=== PATIENT | female | born 1985 | race Caucasian/White ===

== ENCOUNTER 2019-09-29 06:46 | Inpatient (IN) | payer BC ==
[2019-09-29] MEDS ORDERED: Nalbuphine* 10 MG/ML 1 ML VIAL IV ONE (07:40)
[2019-09-29] MEDS ORDERED: Promethazine INJ(RESTRICTED)* 25 MG/ML 1 ML VIAL IV ONE (07:40)
[2019-09-29] MEDS ORDERED: Buffered Lidocaine 1% SYRIN* 1 ML/SYRINGE INTRADERM ONE (07:40)
[2019-09-29] MEDS ORDERED: Lactated Ringers 1000 ML Bag* 1,000 ML IV ONE (07:40)
--- NOTE | 2019-09-29 07:48 | HP ---
General Information - Reason for Visit Leaking of fluid, Contractions - General Information Maternal Age: 31 Grav: 2 Para: 0 SAB: 1 IEA: 0 Estimated Due Date: 01/02/17 Determined By: Early Ultrasound Maternal Blood Type and Rh: O Positive - Results this Serology/RPR Result: Non-Reactive Rubella Result: Non-Immune HBsAg Result: Negative HIV Result: Negative GBS Culture Result: Negative Past Medical History Delivery History: Hx Uncomplicated Vaginal Delivery Pertinent Past Medical History: Non-Contributory Pertinent Past Surgical History: See Records Past Surgical History Comment: Tonsillectomy [place] Tooth Extraction Right ACL repair - 2014 Pertinent Family History: See Records Family History Comment: Father: hypertension Mother: hypertension, heart disease (has stent) - Antepartal Records Antepartal Records: Reviewed, Uncomplicated Review of Systems Constitutional: Uncomfortable CV Complaint: No Respiratory: Shortness of Breath: No Gastrointestinal: No Nausea/Vomiting, Normal Bowel Movement Genitourinary: Leaking Fluid, No Dysuria Musculoskeletal: No Epigastric Pain, Back Pain, Contractions Neurological: No Headache, No Visual Changes Movement: Normal Exam Allergies/Adverse Reactions: Allergies MS Acetaminophen [From Lortab] Allergy (Verified 09/17/19 09:07) Itching MS Hydrocodone [From Lortab] Allergy (Verified 09/17/19 09:07) Itching B/P: 133/80, P: 76, T: 97.6, R: 28 Lab Values - Entire Visit: Laboratory Tests 09/29/19 07:17 Vag Amniotic Fld Detect Positive - Measurements Height: 5 ft 10 in Weight: 222 lb Body Mass Index (BMI): 31.8 Pre- Weight: 182 lb - Exam Breast: Breast Exam Deferred CVA: No CVA Tenderness Extremities: No Edema Heart: Normal Rhythm/Heart Sounds HEENT: No Significant Findings Lungs: Clear Bilaterally Reflexes: DTR 2+ Thyroid: No Thyromegaly - Abdominal Exam Abdomen Exam: Non-Tender, Fundal Height Consistent with Dates - Ultrasound/Biophysical Profile Ultrasound Status: Not Done Targeted Exam Findings See L&D Outpatient Visit Provider Note for Findings: N/A Estimated Weight: 8 lb by margaret's Cervical Exam: 2cm Effacement: 100% Station: -2 Presenting Part: Vertex Membrane Status: SROM Amniotic Fluid Evaluation: Positive ROM Plus Bleeding/Discharge: Bloody Show EFM Findings - External Monitor Findings Baseline Heart Rate: 135 External Monitor Findings: Accelerations Present, No Pattern of Variable or Late Decelerations, Variability Moderate, Baseline Stable Contractions: Regular, Mild, Moderate, 45-90 Seconds Contraction Frequency: 5-10 min Assessment/Plan - Assessment A: IUP at 39 2/7 weeks Category I FHR, no evidence of metabolic acidemia GBS negative SROM Early labor P: Admit to inpatient Therapeutic rest as desired, undecided on epidural Will place IV lock and draw labs Reassess PRN Anticipate SVB - Plan Plan: Admit - Anticipate Vaginal Delivery - Date/Time of Admission Date of Admission: 09/29/19 Time of Admission: 07:40
[2019-09-29] MEDS ORDERED: Lactated Ringers 1000 ML Bag* 1,000 ML IV SCH ×2 (08:00→11:00)
[2019-09-29 08:25] LABS: Urine Benzodiazepine Screen None Detected (None Detect); Urine Opiates Screen None Detected (None Detect)
[2019-09-29 08:44] LABS: ABS Eosinophils 0.1 10^3/ul (0-0.6); ABS Lymphocytes 2.3 10^3/ul (1.0-4.8); ABS Monocytes 0.8 10^3/ul (0-0.8); ABS Neutrophils 6.2 10^3/ul (1.5-7.7); Eosinophil % 0.6 %; Hematocrit 38 % (35-47); Hemoglobin 13.1 g/dL (12.0-16.0); Lymphocyte % 24.3 %; Mean Corpuscular HGB Conc 34 g/dL (31-36); Mean Corpuscular Hemoglobin 32 pg (27-31); Mean Corpuscular Volume 92 fL (80-97); Mean Platelet Volume 8.6 fL (7.4-10.4); Nucleated Red Blood Cells % 0.1; Platelet Count 213 10^3/uL (150-450); Red Blood Count 4.15 10^6 /uL (3.70-4.87); Red Cell Distribution Width 13 % (10-15); White Blood Count 9.4 10^3/uL (3.5-10.8)
[2019-09-29] MEDS ORDERED: Oxytocin in LR* 20 UNITS/1,000 ML BAG IVPB ONE (09:58)
[2019-09-29] MEDS ORDERED: Acetaminophen TAB* 325 MG PO PRN (10:13)
[2019-09-29] MEDS ORDERED: Witch Hazel PAD* JAR TOPICAL PRN (10:13)
[2019-09-29] MEDS ORDERED: Glycerin ADULT SUPP PR PRN (10:13)
[2019-09-29] MEDS ORDERED: Dibucaine 1% 28.35 GM TUBE PR PRN (10:13)
--- NOTE | 2019-09-29 10:20 | PROCNOTE ---
[facility] OB: Delivery Note - Delivery A Date of : 09/29/19 Time of : 09:52 [place] Sex: Male Score 1 Minute: 9 Score 5 Minutes: 9 Gestational Age in Weeks and Days at Delivery: 182 Weeks and 6 Days Delivery Method: Spontaneous Vaginal Labor: Spontaneous Did Patient attempt ?: N/A, No Previous Amniotic Fluid: Clear Estimated Blood Loss: 300 Anesthesia/Analgesia: None Delivered By: Lizy Chao - Nursery Level of Nursery: Regular/Bedside - Perineum Perineal Injury: Abrasion Only - Not Repaired Perineal Repair: None - Events Delivery Events of Note: Pitocin Only After Delivery, Precipitous Delivery - Additional Delivery Notes Additional Delivery Notes: now 39 2/7 weeks experienced SROM to clear fluid at 2300 on 09/28/19, with onset of regular contractions at 0800 on 09/29/19. Began pushing spontaneously at 0945 in hands-knees position, slow controlled delivery of head NEELIMA at 0952, shoulders followed easily with next push. Somersaulted through loose nuchal x 1. Mother assisted into supine position, vigorous male delivered to maternal abdomen. Spontaneous cry, HR > 110, Apgars 9 and 9. Intact hiro placenta followed at 1001, membranes intact and 3VC with marginal insertion noted. Pitocin initiated at 200 cc/hr, fundus firm with massage. Perineum and vagina inspected, perineum intact with small abrasion noted at the introitus. No repair necessary. EBL = 300 cc. Mother and infant stable at time of note, feeding plan is breast.
[2019-09-29] MEDS ORDERED: Oxytocin in LR* 20 UNITS/1,000 ML BAG IVPB SCH (11:00)
[2019-09-29] MEDS: Ibuprofen TAB* 600 MG PO SCH ×2 (11:00→16:58)
[2019-09-29] MEDS ORDERED: OXYTOCIN* 10 UNITS/ML 1 ML VIAL IM ONE (12:10)
[2019-09-29] MEDS ORDERED: Simethicone TAB* 80 MG TAB.CHEW PO SCH (12:30)
[2019-09-29] MEDS: Docusate CAP* 100 MG PO SCH ×2 (16:58→20:17)
--- NOTE | 2019-09-29 18:00 | PTEDU ---
Patient Name: HEMANT GARCÍA HEMANT GARCÍA selected video: Follow Me Mum: The Still to Successful to view on 09/29/20 at 5:58:57 PM from [id number]
[2019-09-30] MEDS: Ibuprofen TAB* 600 MG PO SCH ×2 (00:19→08:13)
[2019-09-30 06:15] LABS: ABS Basophils 0.1 10^3/ul (0-0.2); ABS Eosinophils 0.1 10^3/ul (0-0.6); ABS Lymphocytes 2.7 10^3/ul (1.0-4.8); ABS Monocytes 0.9 10^3/ul (0-0.8); ABS Neutrophils 7.1 10^3/ul (1.5-7.7); Eosinophil % 0.6 %; Hematocrit 34 % (35-47); Hemoglobin 11.8 g/dL (12.0-16.0); Lymphocyte % 25.2 %; Mean Corpuscular HGB Conc 34 g/dL (31-36); Mean Corpuscular Hemoglobin 31 pg (27-31); Mean Corpuscular Volume 91 fL (80-97); Mean Platelet Volume 8.1 fL (7.4-10.4); Nucleated Red Blood Cells % 0.1; Platelet Count 207 10^3/uL (150-450); Red Blood Count 3.76 10^6 /uL (3.70-4.87); Red Cell Distribution Width 13 % (10-15); White Blood Count 10.7 10^3/uL (3.5-10.8)
[2019-09-30 08:04] VITALS: BP 129/74
[2019-09-30] MEDS: Docusate CAP* 100 MG PO SCH (08:13)
[2019-09-30] MEDS ORDERED: Ferrous Gluconate TAB* 324 MG TAB PO SCH (09:00)
== END 2019-09-30 13:50 | disposition home or self-care (01) | DRG 560 ==
LOC: MCHOBOUT 06:46 → MCHOB 07:38
PROVIDERS: ADMIT Midwife; ATTEND Midwife
PROC: 10E0XZZ Delivery of Products of Conception, External Approach (ICD-10-PCS; principal; 2019-09-29)
DX: O62.3 Precipitate labor (principal); Z37.0 Single live birth; O69.81X0 Labor and delivery complicated by cord around neck, without compression, not applicable or unspecified; O70.0 First degree perineal laceration during delivery; Z3A.39 39 weeks gestation of pregnancy
CPT/HCPCS: 36415; 80307; 84112; 85025; 86850; 86900; 86901; A9270-GY; J2590

== ENCOUNTER 2023-04-06 07:25 | Observation (INO) ==
[2023-04-06 08:13] LABS: ABS Eosinophils 0.3 10^3/uL (0.0-0.5); ABS Monocytes 0.5 10^3/uL (0.0-0.9); ABS Neutrophils 2.1 10^3/uL (1.5-7.6); ABS Nucleated RBC 0.01 10^3/ul; Eosinophil % 6.8 %; Hematocrit 36.5 % (35-45); Hemoglobin 12.5 g/dL (11.5-14.3); Lymphocyte % 40.4 %; Mean Corpuscular Hemoglobin 31.3 pg (27-33); Mean Corpuscular Hgb Conc 34.3 g/dL (31-36); Mean Corpuscular Volume 91.1 fL (80-97); Nucleated Red Blood Cells % 0.1 /100 WBC (0.0-0.4); Platelet Count 312 10^3/uL (150-450); Red Cell Distribution Width 12.6 % (12-17); White Blood Count 4.9 10^3/uL (3.8-11.8)
[2023-04-06 08:40] LABS: Albumin 4.2 g/dL (3.2-5.2); Calcium 9.1 mg/dL (8.6-10.3); Total Bilirubin 0.7 mg/dL (0.2-1.0)
[2023-04-06] MEDS ORDERED: Silver Nitrate/Potassium Nitr 1 PAK (1 PAK PER PATIENT) TOPICAL ONE (08:42)
[2023-04-06] MEDS ORDERED: Silver Nitrate/Potassium Nitr 1 PAK (1 PAK PER PATIENT) ONE (08:43)
[2023-04-06 08:46] LABS: Creatinine, Serum 0.9 mg/dL (0.51-0.95); Globulin 2.1 g/dL (2-4); Total Protein 6.3 g/dL (6.4-8.9); eGFR CKD-EPI 84.4 (>60)
[2023-04-06] MEDS ORDERED: Rocuronium 50 mg VIAL 10 mg/ml 5 ml VIAL (50 mg) ONE ×2 (09:54→11:39)
[2023-04-06] MEDS ORDERED: Midazolam 2 mg/2 ml VIAL 1 mg/ml 2 ml VIAL (2 mg) ONE (09:56)
[2023-04-06] MEDS ORDERED: fentaNYL 100 mcg/2 ml 50 MCG/ML VIAL ONE ×2 (09:56→12:42)
[2023-04-06] MEDS ORDERED: Lactated Ringers 1000 ml BAG 1,000 ML IV SCH (10:00)
[2023-04-06] MEDS ORDERED: Acetaminophen IV 1 GM/100ML 1,000 MG/100 ML BAG IV ONE (11:11)
[2023-04-06] MEDS ORDERED: Fluorescein 10% INJ 100 MG/ML AMP ONE (11:14)
[2023-04-06] MEDS ORDERED: Propofol 10 MG/ML 20 ML BTL ONE (11:40)
[2023-04-06] MEDS ORDERED: oxyCODONE/Acetamin 5/325 mg TAB PO PRN (13:50)
[2023-04-07 06:17] VITALS: BP 108/58
== END 2023-04-07 09:22 | disposition home or self-care (01) ==
LOC: ED 07:25 → OR 09:46 → SSU 09:46
PROVIDERS: ADMIT Obstetrics & Gynecology; ATTEND Obstetrics & Gynecology